=== PATIENT | male | born 1945 | race Caucasian/White ===

== ENCOUNTER 2019-11-09 14:01 | Emergency (ER) | payer MEDICARE ==
--- NOTE | 2019-11-09 14:58 | CT ---
CT OF THE ABDOMEN AND PELVIS WITHOUT IV CONTRAST INDICATION: Right upper quadrant abdominal pain COMPARISON: CT the abdomen and pelvis with contrast dated December 03, 2009 FINDINGS: The lack of IV contrast limits evaluation of the solid organs of the abdomen and pelvis. ABDOMEN: Lung bases: Bibasilar subsegmental atelectasis Liver: No focal lesion. Gallbladder: Surgically absent Pancreas: Normal. Adrenal glands: Normal. Spleen: Normal. Kidneys and ureters: Normal. No hydronephrosis. Vasculature: There are severe vascular calcifications seen involving the visualized vasculature. Lymph nodes:No lymphadenopathy. Free fluid in abdomen:No free fluid is evident. PELVIS: Small and large bowel: There is postsurgical change of a partial colectomy. There are scattered colon ic diverticula. There is a mild amount retained stool within the colon. Appendix:Not definitely seen Bladder: Normal. Rectal and perirectal soft tissues:Normal. Reproductive structures: Normal. Free fluid in pelvis: No free fluid is evident. Lymphadenopathy pelvis: No lymphadenopathy is evident. Osseous structures: There is diffuse osteopenia. There is postsurgical change of a left L3-4 interbod y fusion. There is scattered degenerative and osteoarthritic changes. Soft tissues:There is postprocedural change of an anterior abdominal wall hernia repair. IMPRESSION: 1. No acute abnormality.
== END 2019-11-09 15:21 | disposition home or self-care (01) ==
LOC: NAV ERS 14:01
DX: T81.89XA Other complications of procedures, not elsewhere classified, initial encounter (principal); E78.5 Hyperlipidemia, unspecified; E78.00 Pure hypercholesterolemia, unspecified; I25.2 Old myocardial infarction; I10 Essential (primary) hypertension; Z79.899 Other long term (current) drug therapy; Z79.82 Long term (current) use of aspirin
CPT/HCPCS: 74176